=== PATIENT | female | born 1965 | race Caucasian/White ===

== ENCOUNTER 2017-06-01 08:15 | Emergency (ER) | payer SELFPAY ==
[2017-06-01 08:28] VITALS: BP 147/95; BMI 35.4
--- NOTE | 2017-06-01 08:36 | DR.GENAD ---
HPI - PCP Primary Care Physician: gar - Complaint/Symptoms Chief Complaint:: COUGH, CONGESTION, AND DIFF BREATHING SINCE MIDDLE OF LAST MONTH. Self Treatment fo Chief Complaint: OTC MEDS - Nurses notes reviewed Nurses Notes Review: Yes - Source History Provided: Patient - Mode of Arrival Mode of Arrival: Ambulatory - Timing Onset of Chief Complaint: 05/17/17 Came on: Gradually - Duration Duration: Intermittent How lon Duration: Days - Location Location: chest - Severity Severity: Mild - Modifying Factors Worsens:: unknown - Associated Signs and Symptoms Associated Signs and Symptoms: productive cough PMH - PMH Past Medical History: No Past Surgical History: Yes Surgical History: Hysterectomy, Joint Replacement - Family History History of Family Medical Conditions: Yes Family Medical History: Hypertension - Social History Alcohol Use: None Do you use any recreational Drugs:: No Lives With: Family Lives Where: Home - infectious screening In the last 2 months have you had wt loss of >10#?: NO Have you had fever, night sweats or hemotysis?: No Have you traveled outside the country in the last 6 months?: No Isolation: Standard ROS - Review of Systems Constitutional: No Symptoms Reported Eyes: No Symptoms Reported ENTM: No Symptoms Reported Respiratoy: Productive Cough, Short of Breath, Wheezing Cardiovascular: No Symptoms Reported Gastrointestinal/Abdominal: No Symptoms Reported Genitourinary: No Symptoms Reported Neurological: No Symptoms Reported Musculoskeletal: No Symptoms Reported Integumentary: No Symptoms Reported Hematologic/Lymphatic: No Symptoms Reported Endocrine: No Symptoms Reported Psychiatric: No Symptoms Reported All Other Systems: Reviewed and Negative PE - Vital Signs Vitals: Temperature 97.9 F Pulse Rate 81 Respiratory Rate 16 Blood Pressure 147/95 O2 Sat by Pulse Oximetry 96 - General Limitations: No Limitations General Appearance: Alert, In No Apparent Distress - Head Head Exam: Normal Inspection, Atraumatic - Eyes Eye exam: Normal Appearance, EOMI. negative: Scleral Icterus, Conjunctival Injection - ENT ENT Exam: Normal Exam, Normal Oropharynx External Ear Exam: Normal External Inspection Mouth Exam: Normal Inspection. negative: Drooling Throat Exam: Normal Inspection. negative: Tonsillar Erythema - Neck Neck Exam: Normal Inspection, Full ROM, Trachea Midline - Chest Chest Inspection: Normal Inspection - Respiratory Respiratory Exam: negative: Normal Lung Sounds Bilat, Accessory Muscle Use, Respiratory Distress Respiratory Exam: Bilateral Wheezing (slight) - Cardiovascular Cardiovascular Exam: Regular Rate - Abdominal Exam Abdominal Exam: Normal Inspection, Normal Bowel Sounds, Soft. negative: Distention - Extremities Extremities Exam: Normal Inspection, Full ROM, Tenderness - Back Back Exam: Normal Inspection, Full ROM, Tenderness - Neurologic Neurological Exam: Alert, Oriented X3, CN II-XII Intact - Psychiatric Psychiatric Exam: Normal Affect, Normal Mood - Skin Skin Exam: Intact, Normal Color - Diagnosis Discharge Problem: Bronchitis - Discharge Plan Condition: Stable Prescriptions: Azithromycin [Zithromax] 1 dose PO DAILY #6 tab Prednisone [Prednisone Tab 20 mg] 20 mg PO QAM #7 tab - Follow ups/Referrals Follow ups/Referrals: BHARGAV GAR [Primary Care Provider] - 3 days - Instructions
[2017-06-01] MEDS ORDERED: XOPENEX 1.25 MG/3 ML NEBULE NEB ONE ×2 (08:46→08:51)
== END 2017-06-01 09:21 | disposition home or self-care (01) ==
LOC: ER 08:35
DX: J40 Bronchitis, not specified as acute or chronic (principal)
CPT/HCPCS: 94640; 99282

== ENCOUNTER 2017-07-14 08:45 | Emergency (ER) | payer SELFPAY ==
[2017-07-14 08:50] VITALS: BP 117/84; BMI 35.4
--- NOTE | 2017-07-14 09:14 | DR.GENAD ---
HPI - PCP Primary Care Physician: gar - Complaint/Symptoms Chief Complaint Doctors Comments: Patient admits to a four day history of diarrah and vomiting. She denies fever. The emesis in non projectile and non bilious. Chief Complaint:: patient stated she has been vomiting and diarhea for 4 days. - Source History Provided: Patient - Mode of Arrival Mode of Arrival: Ambulatory - Timing Onset of Chief Complaint: 07/10/17 PMH - PMH Past Medical History: No Past Surgical History: Yes Surgical History: Hysterectomy, Joint Replacement - Family History History of Family Medical Conditions: Yes Family Medical History: Hypertension - Social History Does patient currently use any type of tobacco product: No Have you used tobacco products in the last 12 months: No Type of Tobacco Use: None Does any household member use tobacco: Yes Alcohol Use: None Do you use any recreational Drugs:: No Lives With: Family Lives Where: Home - infectious screening In the last 2 months have you had wt loss of >10#?: NO Have you had fever, night sweats or hemotysis?: No Have you traveled outside the country in the last 6 months?: No Isolation: Standard ROS - Review of Systems Eyes: No Symptoms Reported ENTM: No Symptoms Reported Respiratoy: No Symptoms Reported Cardiovascular: No Symptoms Reported Gastrointestinal/Abdominal: No Symptoms Reported Genitourinary: No Symptoms Reported Neurological: No Symptoms Reported Musculoskeletal: No Symptoms Reported Integumentary: No Symptoms Reported Hematologic/Lymphatic: No Symptoms Reported Endocrine: No Symptoms Reported Psychiatric: No Symptoms Reported All Other Systems: Reviewed and Negative PE - Vital Signs Vitals: Temperature 97.7 F Pulse Rate 80 Respiratory Rate 16 Blood Pressure 117/84 O2 Sat by Pulse Oximetry 98 - General Limitations: No Limitations General Appearance: Alert, In No Apparent Distress - Head Head Exam: Normal Inspection, Atraumatic - Eyes Eye exam: Normal Appearance, PERRL, EOMI - ENT ENT Exam: Normal Exam, Normal Oropharynx, Normal External Ear Exam External Ear Exam: Normal External Inspection TM/Canal Exam: Bilateral Normal Nose Exam: Normal Nose Exam Mouth Exam: Normal Inspection Throat Exam: Normal Inspection. negative: Tonsillar Exudate, R Peritonsillar Mass - Neck Neck Exam: Normal Inspection, Full ROM. negative: Tenderness - Chest Chest Inspection: Normal Inspection - Respiratory Respiratory Exam: Normal Lung Sounds Bilat Respiratory Exam: Lower Clear to Auscultation - Cardiovascular Cardiovascular Exam: Regular Rate - Abdominal Exam Abdominal Exam: Normal Inspection, Hyperactive Bowel Sounds Abdominal Tenderness: Epigastrium - Extremities Extremities Exam: Normal Inspection, Full ROM - Back Back Exam: Normal Inspection, Full ROM - Neurologic Neurological Exam: Alert, Oriented X3, CN II-XII Intact - Psychiatric Psychiatric Exam: Normal Affect, Normal Mood - Skin Skin Exam: Warm, Dry Course - Reevaluation 1st: Improved ROR - Labs Reviewed Laboratory Results Reviewed?: Yes (H pylori positive) Result Diagrams: 07/14/17 09:28 07/14/17 09: Laboratory: WBC 4.9 X10^3/uL (3.6-10.0) 07/14/17 09: RBC 5.14 X10^6/uL (3.5-5.4) 07/14/17 09: Hgb 16.0 g/dL (12.0-16.0) 07/14/17 09: Hct 45.9 % (36.0-47.0) 07/14/17: MCV 89.2 fL (80.0-100.0) 07/14/17 09: MCH 31.1 pg (27.0-34.0) 07/14/17 09: MCHC 34.9 g/dL (33.0-35.0) 07/14/17: RDW 14.4 % (11.6-16.5) 07/14/17 09: Plt Count 262 X10^3/uL (150.0-450.0) 07/14/17: MPV 7.7 fL (7.4-11.0) 07/14/17: Neut % 64.3 % (42.0-75.0) 07/14/17 09: Lymph % 23.3 % (21.0-51.0) 07/14/17: [place] % 10.6 % (0.0-13.0) 07/14/17: Eos % 1.3 % (0.9-2.9) 07/14/17 09: Baso % 0.5 % (0.2-1.0) 07/14/17: Neut # 3.2 x10^3/uL (2.2-4.8) 07/14/17 09:28 Lymph # 1.1 X10^3/uL (1.3-2.9) L 07/14/17 09:28 [place] # 0.5 x10^3/uL (0.3-0.8) 07/14/17 09:28 Eos # 0.1 x10^3/uL (0.0-0.2) 07/14/17 09:28 Baso # 0.0 X10^3/uL (0.0-0.1) 07/14/17 09:28 Absolute Nucleated RBC 0.1 /100WBC 07/14/17 09:28 Sodium 139 mmol/L (136-145) 07/14/17 09:28 Corrected Sodium TNP 07/14/17 09:28 Potassium 4.0 mmol/L (3.5-5.1) 07/14/17 09:28 Chloride 104 mmol/L (98-107) 07/14/17 09:28 Carbon Dioxide 27.5 mmol/L (21-32) 07/14/17 09:28 BUN 16 mg/dL (7-18) 07/14/17 09:28 Creatinine 0.84 mg/dL (0.55-1.02) 07/14/17 09:28 Est GFR (MDRD) Af Amer > 60 (>60) 07/14/17 09:28 Est GFR (MDRD) Non-Af > 60 (>60) 07/14/17 09:28 Glucose 92 mg/dL (65-99) 07/14/17 09:28 Calcium 9.2 mg/dL (8.5-10.1) 07/14/17 09:28 Corrected Calcium TNP 07/14/17 09:28 Total Bilirubin 0.40 mg/dL (0.2-1.0) 07/14/17 09:28 AST 21 Units/L (15-37) 07/14/17 09:28 ALT 33 Units/L (12-78) 07/14/17 09:28 Alkaline Phosphatase 98 Units/L (46-116) 07/14/17 09:28 Total Protein 7.8 g/dL (6.4-8.2) 07/14/17 09:28 Albumin 3.5 g/dL (3.4-5.0) 07/14/17 09:28 Globulin 4.3 g/dL (2.5-4.5) 07/14/17 09:28 Albumin/Globulin Ratio 0.8 Ratio (1.1-2.1) L 07/14/17 09:28 H. pylori IgG Antibody Positive (NEGATIVE) A 07/14/17 09:28 Streptococcus Screen Negative (NEGATIVE) 07/14/17 09:35 - Diagnosis Discharge Problem: Gastroenteritis, Helicobacter pylori gastritis - Discharge Plan Condition: Stable - Follow ups/Referrals Follow ups/Referrals: BHARGAV GAR [Primary Care Provider] - 3 days - Instructions
[2017-07-14] MEDS ORDERED: LR 1000 ML IV 1,000 ML IV ONE ×2 (09:16→09:18)
[2017-07-14] MEDS ORDERED: ZOFRAN INJ 4 MG VIAL IVP ONE (09:17)
[2017-07-14] MEDS ORDERED: ZOFRAN INJ 4 MG VIAL ONE (09:19)
[2017-07-14 09:40] LABS: BASOPHILS % (AUTO) 0.5 % (0.2-1.0); EOSINOPHILS # (AUTO) 0.1 x10^3/uL (0.0-0.2); EOSINOPHILS % (AUTO) 1.3 % (0.9-2.9); HEMATOCRIT 45.9 % (36.0-47.0); LYMPHOCYTES # (AUTO) 1.1 X10^3/uL (1.3-2.9); LYMPHOCYTES % (AUTO) 23.3 % (21.0-51.0); MEAN CORPUSCULAR HEMOGLOBIN 31.1 pg (27.0-34.0); MEAN CORPUSCULAR HGB CONC 34.9 g/dL (33.0-35.0); MEAN CORPUSCULAR VOLUME 89.2 fL (80.0-100.0); MEAN PLATELET VOLUME 7.7 fL (7.4-11.0); MONOCYTES # (AUTO) 0.5 x10^3/uL (0.3-0.8); MONOCYTES % (AUTO) 10.6 % (0.0-13.0); NEUTROPHILS # (AUTO) 3.2 x10^3/uL (2.2-4.8); NEUTROPHILS % (AUTO) 64.3 % (42.0-75.0); PLATELET COUNT 262 X10^3/uL (150.0-450.0); RED BLOOD COUNT 5.14 X10^6/uL (3.5-5.4); RED CELL DISTRIBUTION WIDTH 14.4 % (11.6-16.5); WHITE BLOOD COUNT 4.9 X10^3/uL (3.6-10.0)
[2017-07-14 09:51] LABS: ALANINE AMINOTRANSFERASE 33 Units/L (12-78); ALBUMIN 3.5 g/dL (3.4-5.0); ALKALINE PHOSPHATASE 98 Units/L (46-116); ASPARTATE AMINO TRANSFERASE 21 Units/L (15-37); BLOOD UREA NITROGEN 16 mg/dL (7-18); CALCIUM 9.2 mg/dL (8.5-10.1); CARBON DIOXIDE 27.5 mmol/L (21-32); CHLORIDE 104 mmol/L (98-107); CREATININE 0.84 mg/dL (0.55-1.02); SODIUM 139 mmol/L (136-145); TOTAL PROTEIN 7.8 g/dL (6.4-8.2); eGFR BLACK RACES > 60 (>60); eGFR NON BLACK RACES > 60 (>60)
[2017-07-14] MEDS ORDERED: NITROSTAT SL ONE (10:23)
[2017-07-15] MEDS ORDERED: ASPIRIN 81 MG CHEWTAB PO ONE (10:22)
== END 2017-07-14 10:33 | disposition home or self-care (01) ==
LOC: ER 08:54
DX: K52.89 Other specified noninfective gastroenteritis and colitis (principal); B96.81 Helicobacter pylori [H. pylori] as the cause of diseases classified elsewhere
CPT/HCPCS: 36415; 80053; 85025; 86677; 87070; 87880; 96365; 96374; 99283; A4222; J2405; J7120

== ENCOUNTER 2017-07-18 17:07 | Emergency (ER) | payer SELFPAY ==
[2017-07-18 17:15] VITALS: BP 150/93; BMI 37.2
--- NOTE | 2017-07-18 17:54 | DR.GENAD ---
HPI - PCP Primary Care Physician: Gar - Complaint/Symptoms Chief Complaint Doctors Comments: Patient was diagnosed with H pylori gastritis and UTI on last week. She presents today with complaint the she continues to have diarrhea and vomiting. Chief Complaint:: "For over a week now I have been feeling really weak and sick. I have been throwing up and have had loose stools. I came to the ER Wed and was diagnosed with gastroenteritis. I have not gotten any better though." - Source History Provided: Patient - Mode of Arrival Mode of Arrival: Ambulatory - Timing Onset of Chief Complaint: 07/11/17 PMH - PMH Past Medical History: No Past Surgical History: Yes Surgical History: Cholecystectomy, Hysterectomy, Joint Replacement - Family History History of Family Medical Conditions: Yes Family Medical History: Diabetes Mellitus, Hypertension - Social History Does patient currently use any type of tobacco product: No Have you used tobacco products in the last 12 months: No Type of Tobacco Use: None Does any household member use tobacco: No Alcohol Use: None Do you use any recreational Drugs:: No Lives With: Spouse Lives Where: Home - infectious screening In the last 2 months have you had wt loss of >10#?: NO Have you had fever, night sweats or hemotysis?: No Have you traveled outside the country in the last 6 months?: No Isolation: Standard ROS - Review of Systems Eyes: No Symptoms Reported ENTM: No Symptoms Reported Respiratoy: No Symptoms Reported Cardiovascular: No Symptoms Reported Gastrointestinal/Abdominal: Diarrhea Genitourinary: No Symptoms Reported Neurological: No Symptoms Reported Musculoskeletal: No Symptoms Reported Integumentary: No Symptoms Reported Hematologic/Lymphatic: No Symptoms Reported Endocrine: No Symptoms Reported Psychiatric: No Symptoms Reported All Other Systems: Reviewed and Negative PE - Vital Signs Vitals: Temperature 97.9 F Pulse Rate 92 Respiratory Rate 18 Blood Pressure 150/93 O2 Sat by Pulse Oximetry 95 - General Limitations: No Limitations General Appearance: Alert, In No Apparent Distress - Head Head Exam: Normal Inspection, Atraumatic - Eyes Eye exam: Normal Appearance, PERRL, EOMI - ENT ENT Exam: Normal Exam External Ear Exam: Normal External Inspection TM/Canal Exam: Bilateral Normal Nose Exam: Normal Nose Exam Mouth Exam: Normal Inspection Throat Exam: Normal Inspection - Neck Neck Exam: Normal Inspection - Chest Chest Inspection: Normal Inspection - Respiratory Respiratory Exam: Normal Lung Sounds Bilat Respiratory Exam: Bilateral Clear to Auscultation - Cardiovascular Cardiovascular Exam: Regular Rate, Normal Rhythm - Abdominal Exam Abdominal Exam: Normal Inspection. negative: Tenderness, Guarding, Rebound, Rigidity Abdominal Tenderness: Epigastrium - Extremities Extremities Exam: Normal Inspection, Full ROM - Back Back Exam: Normal Inspection, Full ROM - Neurologic Neurological Exam: Alert, Oriented X3, CN II-XII Intact - Psychiatric Psychiatric Exam: Normal Affect, Normal Mood - Skin Skin Exam: Warm, Dry, Intact Course - Treatment Treatment: Reviewed last weeks labs with todays, reviewed urine c/s: E.Coli sensitive to all. Repeat urine shows improvin+bld vs 4+bld,nitrite neg vs nitrite +;leuk + vs leuk +, wbc 10-20 vs -08., chemistries normal ROR - Labs Reviewed Result Diagrams: 07/18/17 18:00 Laboratory: Sodium 141 mmol/L (136-145) 07/18/17 18:00 Corrected Sodium TNP 07/18/17 18:00 Potassium 3.6 mmol/L (3.5-5.1) 07/18/17 18:00 Chloride 107 mmol/L (98-107) 07/18/17 18:00 Carbon Dioxide 25.8 mmol/L (21-32) 07/18/17 18:00 BUN 11 mg/dL (7-18) 07/18/17 18:00 Creatinine 0.92 mg/dL (0.55-1.02) 07/18/17 18:00 Est GFR (MDRD) Af Amer > 60 (>60) 07/18/17 18:00 Est GFR (MDRD) Non-Af > 60 (>60) 07/18/17 18:00 Glucose 92 mg/dL (65-99) 07/18/17 18:00 Calcium 9.2 mg/dL (8.5-10.1) 07/18/17 18:00 Specimen Type Clean catch urine 07/18/17 18:03 Urine Color Yellow (YELLOW) 07/18/17 18:03 Urine Appearance Hazy (CLEAR) 07/18/17 18:03 Urine pH 6.0 (5.0 - 8.0) 07/18/17 18:03 Ur Specific [place] 1.025 (1.000-1.030) 07/18/17 18:03 Urine Protein 2+ (NEGATIVE) 07/18/17 18:03 Urine Glucose (UA) Negative (NEGATIVE) 07/18/17 18:03 Urine Ketones Negative (NEGATIVE) 07/18/17 18:03 Urine Occult Blood 2+ (NEGATIVE) 07/18/17 18:03 Urine Nitrite Negative (NEGATIVE) 07/18/17 18:03 Urine Bilirubin Negative (NEGATIVE) 07/18/17 18:03 Urine Urobilinogen Normal (NORMAL) 07/18/17 18:03 Ur Leukocyte Esterase 1+ (NEGATIVE) 07/18/17 18:03 Urine RBC Rare /HPF (NEGATIVE) 07/18/17 18:03 Urine WBC 04 - 08 /HPF (NEGATIVE) 07/18/17 18:03 Ur Squamous Epith Cells Many /HPF (NEGATIVE) 07/18/17 18:03 Amorphous Sediment 3+ /HPF (NEGATIVE) 07/18/17 18:03 Urine Bacteria Trace /HPF (NEGATIVE) 07/18/17 18:03 Hyaline Casts Rare /LPF (NEGATIVE) 07/18/17 18:03 Ur Culture Indicated? No/not indicated 07/18/17 18:03 - Diagnosis Discharge Problem: H. pylori duodenitis Diarrhea Qualifiers: Diarrhea type: unspecified type Qualified Code(s): R19.7 - Diarrhea, unspecified - Discharge Plan Condition: Stable - Follow ups/Referrals Follow ups/Referrals: BHARGAV GAR [Primary Care Provider] - 3 days - Instructions
[2017-07-18 18:19] LABS: BILIRUBIN,URINE NEGATIVE (NEGATIVE); BLOOD/HEMOGLOBIN,URINE 2+ (NEGATIVE); GLUCOSE, URINE NEGATIVE (NEGATIVE); KETONES,URINE NEGATIVE (NEGATIVE); LEUKOCYTE ESTERASE ,URINE 1+ (NEGATIVE); NITRITES,URINE NEGATIVE (NEGATIVE); PROTEIN,URINE 2+ (NEGATIVE); UROBILINOGEN,URINE NORMAL (NORMAL)
[2017-07-18 18:23] LABS: APPEARANCE,URINE HAZY (CLEAR); COLOR,URINE YELLOW (YELLOW)
[2017-07-18 18:23] LABS: BLOOD UREA NITROGEN 11 mg/dL (7-18); CALCIUM 9.2 mg/dL (8.5-10.1); CARBON DIOXIDE 25.8 mmol/L (21-32); CHLORIDE 107 mmol/L (98-107); CREATININE 0.92 mg/dL (0.55-1.02); SODIUM 141 mmol/L (136-145); eGFR BLACK RACES > 60 (>60); eGFR NON BLACK RACES > 60 (>60)
[2017-07-18 18:41] LABS: RBC,URINE RARE /HPF (NEGATIVE)
[2017-07-18 18:42] LABS: AMORPHOUS SEDIMENT,UR 3+ /HPF (NEGATIVE); BACTERIA,URINE TRACE /HPF (NEGATIVE); HYALINE CASTS, URINE RARE /LPF (NEGATIVE); SQUAMOUS EPITHELIAL CELL,UR MANY /HPF (NEGATIVE)
== END 2017-07-18 19:34 | disposition home or self-care (01) ==
LOC: ER 17:24
DX: K29.70 Gastritis, unspecified, without bleeding (principal); R19.7 Diarrhea, unspecified
CPT/HCPCS: 36415; 80048; 81001; 99282

== ENCOUNTER 2017-08-07 15:08 | Emergency (ER) | payer SELFPAY ==
[2017-08-07 15:26] VITALS: BP 138/84; BMI 37.2
[2017-08-07] MEDS ORDERED: TORADOL 60 MG VIAL IM ONE (16:17)
[2017-08-07] MEDS ORDERED: PHENERGAN INJ 25 MG IM ONE (16:17)
--- NOTE | 2017-08-07 16:21 | ED.ABDFE ---
HPI - Time seen Time seen: 16:15 - PCP Primary Care Physician: RIN LOPEZ - Complaint Chief Complaint Doctors Comments: Patient complains of abdominal pain for the past month with pain getting worst. Patient is complaining of Right lower abdominal pain that radiates to her back with problems urinating. she denies hematuria, kidney stones and states her gallbladder has been removed. She has been having problems with nausea but denies diarrhea. she denies chest pain or SOB. patient denies alcohol or tobacco usage. She denies any recent trauma. She is a patient of Dr. Gar. Chief Complaint:: PT C/O ABD PAIN FOR THE PAST MONTH AND DOCTOR RIN HAS BEEN TRYING TO GIVE HER MEDS AND SHE IS GETTING WORSE.. - Nurses notes reviewed Nurses Notes Review: Yes - Source History Provided: Patient - Mode of arrival Mode of Arrival: Ambulatory - Timing Onset of Chief Complaint: 08/07/17 Came on: Gradually - Duration Duration: Intermittent How lon Duration: Weeks - Location Location: RUQ, Epigastric, Suprapubic - Severity Severity: Moderate - Quality Quality: Aching, Cramping - Context Onset: Gradually History of: Abdominal surgery - Modifying Worsening Factors: Movement Improving Factors: Nothing - Associated signs and symptoms Associated Signs and Symptoms: Nausea, Dysuria, Urgency PMH - PMH Past Medical History: No Past Surgical History: Yes Surgical History: Cholecystectomy, Hysterectomy, Joint Replacement Past Surgical History Comment: HYS, GALLBLADDER, KNEE REPLACEMENT. - Family History History of Family Medical Conditions: Yes Family Medical History: Diabetes Mellitus, Hypertension - Social History Does patient currently use any type of tobacco product: No Have you used tobacco products in the last 12 months: No Type of Tobacco Use: None Does any household member use tobacco: No Alcohol Use: None Do you use any recreational Drugs:: No Lives With: Spouse Lives Where: Home - infectious screening In the last 2 months have you had wt loss of >10#?: NO Have you had fever, night sweats or hemotysis?: No Have you traveled outside the country in the last 6 months?: No Isolation: Standard ROS - Review of Systems Constitutional: No Symptoms Reported (abdominal pain) Eyes: No Symptoms Reported ENTM: No Symptoms Reported Respiratoy: No Symptoms Reported. negative: See HPI, Productive Cough, Non- Productive Cough, Moist Cough, Dry Cough, Hacking Cough, Barking Cough, Brassy Cough, Orthopnea, Short of Breath, Stridor, Wheezing, Hemoptysis, Other Cardiovascular: No Symptoms Reported Gastrointestinal/Abdominal: No Symptoms Reported, Abdominal Pain, Nausea Genitourinary: No Symptoms Reported, Dysuria. negative: See HPI, Discharge, Frequency, Hematuria, Pain, Bleeding, Other Neurological: No Symptoms Reported Musculoskeletal: No Symptoms Reported, Back Integumentary: No Symptoms Reported Hematologic/Lymphatic: No Symptoms Reported Endocrine: No Symptoms Reported. negative: See HPI, Excessive Sweating, Flushing, Intolerance to Cold, Intolerance to Heat, Increased Hunger, Increased Thirst, Increased Urine, Unexplained Weight Gain, Unexplained Weight Loss, Failure to Thrive, Decreased Appetite, Other Psychiatric: No Symptoms Reported PE - Vital Signs Vitals: Temperature 97.4 F Pulse Rate 92 Respiratory Rate 18 Blood Pressure 138/84 O2 Sat by Pulse Oximetry 97 - General Limitations: No Limitations General Appearance: Alert, In Distress (moderate) - Head Head Exam: Normal Inspection, Atraumatic, Normocephalic - Eyes Eye exam: Normal Appearance, PERRL, EOMI. negative: Scleral Icterus, Conjunctival Injection, Nystagmus, Miosis, Mydrasis, Periorbital Swelling, Periorbital Tenderness, Other - ENT ENT Exam: Normal Exam, Normal Oropharynx, Normal External Ear Exam, Mucous Membranes Moist, TM's Normal Bilaterally - Neck Neck Exam: Normal Inspection, Full ROM, Trachea Midline. negative: Tenderness, Meningismus, Lymphadenopathy, Thyromegaly, Other - Chest Chest Inspection: Normal Inspection, Symmetric Chest Wall Rise - Respiratory Respiratory Exam: Normal Lung Sounds Bilat Respiratory Exam: Bilateral Clear to Auscultation - Cardiovascular Cardiovascular Exam: Regular Rate, Normal Rhythm, Normal Heart Sounds - Abdominal Exam Abdominal Exam: Normal Inspection, Normal Bowel Sounds, Soft, Tenderness ( epigastric; LUQ and RUQ tenderness with suprapubic tenderness), Guarding, Dimnished Bowel Sounds Abdominal Tenderness: RUQ, LUQ, Epigastrium, Suprapubic, Moderate - Rectal Rectal Exam: Deferred - Back Back Exam: Normal Inspection, Full ROM, (R) CVA Tenderness. negative: (R) Sciatic Notch Tenderness, (L) Sciatic Notch Tendern - Extremeties Extremities Exam: Normal Inspection, Full ROM, Normal Capillary Refill - External Exam: Female: Deferred : Speculum Exam (Female): Deferred : Bimanual Exam (female): Deferred - Neurologic Neurological Exam: Alert, Oriented X3, CN II-XII Intact, Normal Gait, Reflexes Normal - Psychiatric Psychiatric Exam: Normal Affect, Normal Mood - Skin Skin Exam: Warm, Dry, Intact, Normal Color ROR - Labs Reviewed Laboratory Results Reviewed?: Yes (all labs and x-ray results reviewed and discussed with patient) Result Diagrams: 08/07/17 16:35 08/07/17 16:35 Laboratory: WBC 8.8 X10^3/uL (3.6-10.0) 08/07/17 16:35 RBC 4.92 X10^6/uL (3.5-5.4) 08/07/17 16:35 Hgb 15.1 g/dL (12.0-16.0) 08/07/17 16:35 Hct 44.3 % (36.0-47.0) 08/07/17 16:35 MCV 90.0 fL (80.0-100.0) 08/07/17 16:35 MCH 30.7 pg (27.0-34.0) 08/07/17 16:35 MCHC 34.1 g/dL (33.0-35.0) 08/07/17 16:35 RDW 14.1 % (11.6-16.5) 08/07/17 16:35 Plt Count 266 X10^3/uL (150.0-450.0) 08/07/17 16:35 MPV 7.8 fL (7.4-11.0) 08/07/17 16:35 Neut % 70.2 % (42.0-75.0) 08/07/17 16:35 Lymph % 19.6 % (21.0-51.0) L 08/07/17 16:35 [place] % 8.6 % (0.0-13.0) 08/07/17 16:35 Eos % 1.0 % (0.9-2.9) 08/07/17 16:35 Baso % 0.6 % (0.2-1.0) 08/07/17 16:35 Neut # 6.2 x10^3/uL (2.2-4.8) H 08/07/17 16:35 Lymph # 1.7 X10^3/uL (1.3-2.9) 08/07/17 16:35 [place] # 0.8 x10^3/uL (0.3-0.8) 08/07/17 16:35 Eos # 0.1 x10^3/uL (0.0-0.2) 08/07/17 16:35 Baso # 0.1 X10^3/uL (0.0-0.1) 08/07/17 16:35 Absolute Nucleated RBC 0.0 /100WBC 08/07/17 16:35 Sodium 140 mmol/L (136-145) 08/07/17 16:35 Corrected Sodium TNP 08/07/17 16:35 Potassium 3.8 mmol/L (3.5-5.1) 08/07/17 16:35 Chloride 104 mmol/L (98-107) 08/07/17 16:35 Carbon Dioxide 29.8 mmol/L (21-32) 08/07/17 16:35 BUN 13 mg/dL (7-18) 08/07/17 16:35 Creatinine 0.99 mg/dL (0.55-1.02) 08/07/17 16:35 Est GFR (MDRD) Af Amer > 60 (>60) 08/07/17 16:35 Est GFR (MDRD) Non-Af > 60 (>60) 08/07/17 16:35 Glucose 82 mg/dL (65-99) 08/07/17 16:35 Calcium 9.2 mg/dL (8.5-10.1) 08/07/17 16:35 Corrected Calcium TNP 08/07/17 16:35 Total Bilirubin 0.40 mg/dL (0.2-1.0) 08/07/17 16:35 AST 13 Units/L (15-37) L 08/07/17 16:35 ALT 43 Units/L (12-78) 08/07/17 16:35 Alkaline Phosphatase 127 Units/L (46-116) H 08/07/17 16:35 Total Protein 7.6 g/dL (6.4-8.2) 08/07/17 16:35 Albumin 3.5 g/dL (3.4-5.0) 08/07/17 16:35 Globulin 4.1 g/dL (2.5-4.5) 08/07/17 16:35 Albumin/Globulin Ratio 0.9 Ratio (1.1-2.1) L 08/07/17 16:35 Amylase 40 Units/L (25-115) 08/07/17 16:35 Lipase 122 Units/L (73-393) 08/07/17 16:35 HCG, Qual Negative <10 mIU/mL 08/07/17 16:15 Specimen Type Clean catch urine 08/07/17 16:33 Urine Color Yellow (YELLOW) 08/07/17 16:33 Urine Appearance Hazy (CLEAR) 08/07/17 16:33 Urine pH 5.0 (5.0 - 8.0) 08/07/17 16:33 Ur Specific [place] 1.025 (1.000-1.030) 08/07/17 16:33 Urine Protein 1+ (NEGATIVE) 08/07/17 16:33 Urine Glucose (UA) Negative (NEGATIVE) 08/07/17 16:33 Urine Ketones Negative (NEGATIVE) 08/07/17 16:33 Urine Occult Blood 1+ (NEGATIVE) 08/07/17 16:33 Urine Nitrite Negative (NEGATIVE) 08/07/17 16:33 Urine Bilirubin Negative (NEGATIVE) 08/07/17 16:33 Urine Urobilinogen Normal (NORMAL) 08/07/17 16:33 Ur Leukocyte Esterase 1+ (NEGATIVE) 08/07/17 16:33 Urine RBC 0-2 /HPF (NEGATIVE) 08/07/17 16:33 Urine WBC 5-7 /HPF (NEGATIVE) 08/07/17 16:33 Ur Squamous Epith Cells Few /HPF (NEGATIVE) 08/07/17 16:33 Urine Bacteria Trace /HPF (NEGATIVE) 08/07/17 16:33 Ur Culture Indicated? No/not indicated 08/07/17 16:33 H. pylori IgG Antibody Positive (NEGATIVE) A 08/07/17 16:15 - XRAY XRAY Interpreted by: Radiologist (CT abdomen: Ct finding of acute sigmoid and rectosigmoid colonic diverticulitis) - Diagnosis Discharge Problem: Diverticulitis of colon, Helicobacter positive gastritis - Discharge Plan Disposition: 01 HOME, SELF-CARE Condition: Stable Prescriptions: Levofloxacin [LEVAQUIN TAB 500 MG *] 500 mg PO Q24H #14 tab Metronidazole [Flagyl Tab 500 mg] 500 mg PO QID PRN #40 tab PRN Reason: - Follow ups/Referrals Follow ups/Referrals: BHARGAV GAR [Primary Care Provider] - 3 days - Instructions Instructions: Diverticulitis, [id number], Helicobacter Pylori Antibodies Test , Abdominal Pain, Adult, [id number]
[2017-08-07] MEDS ORDERED: TORADOL 60 MG VIAL ONE (16:22)
[2017-08-07] MEDS ORDERED: PHENERGAN INJ 25 MG ONE (16:22)
[2017-08-07 16:46] LABS: BILIRUBIN,URINE NEGATIVE (NEGATIVE); BLOOD/HEMOGLOBIN,URINE 1+ (NEGATIVE); GLUCOSE, URINE NEGATIVE (NEGATIVE); KETONES,URINE NEGATIVE (NEGATIVE); LEUKOCYTE ESTERASE ,URINE 1+ (NEGATIVE); NITRITES,URINE NEGATIVE (NEGATIVE); PROTEIN,URINE 1+ (NEGATIVE); UROBILINOGEN,URINE NORMAL (NORMAL)
[2017-08-07 16:46] LABS: BASOPHILS # (AUTO) 0.1 X10^3/uL (0.0-0.1); BASOPHILS % (AUTO) 0.6 % (0.2-1.0); EOSINOPHILS # (AUTO) 0.1 x10^3/uL (0.0-0.2); HEMATOCRIT 44.3 % (36.0-47.0); HEMOGLOBIN 15.1 g/dL (12.0-16.0); LYMPHOCYTES # (AUTO) 1.7 X10^3/uL (1.3-2.9); LYMPHOCYTES % (AUTO) 19.6 % (21.0-51.0); MEAN CORPUSCULAR HEMOGLOBIN 30.7 pg (27.0-34.0); MEAN CORPUSCULAR HGB CONC 34.1 g/dL (33.0-35.0); MEAN PLATELET VOLUME 7.8 fL (7.4-11.0); MONOCYTES # (AUTO) 0.8 x10^3/uL (0.3-0.8); MONOCYTES % (AUTO) 8.6 % (0.0-13.0); NEUTROPHILS # (AUTO) 6.2 x10^3/uL (2.2-4.8); NEUTROPHILS % (AUTO) 70.2 % (42.0-75.0); PLATELET COUNT 266 X10^3/uL (150.0-450.0); RED BLOOD COUNT 4.92 X10^6/uL (3.5-5.4); RED CELL DISTRIBUTION WIDTH 14.1 % (11.6-16.5); WHITE BLOOD COUNT 8.8 X10^3/uL (3.6-10.0)
[2017-08-07 16:53] LABS: APPEARANCE,URINE HAZY (CLEAR); BACTERIA,URINE TRACE /HPF (NEGATIVE); COLOR,URINE YELLOW (YELLOW); RBC,URINE 0-2 /HPF (NEGATIVE); SQUAMOUS EPITHELIAL CELL,UR FEW /HPF (NEGATIVE)
[2017-08-07 16:57] LABS: ALANINE AMINOTRANSFERASE 43 Units/L (12-78); ALBUMIN 3.5 g/dL (3.4-5.0); ALKALINE PHOSPHATASE 127 Units/L (46-116); AMYLASE 40 Units/L (25-115); ASPARTATE AMINO TRANSFERASE 13 Units/L (15-37); BLOOD UREA NITROGEN 13 mg/dL (7-18); CALCIUM 9.2 mg/dL (8.5-10.1); CARBON DIOXIDE 29.8 mmol/L (21-32); CHLORIDE 104 mmol/L (98-107); CREATININE 0.99 mg/dL (0.55-1.02); LIPASE 122 Units/L (73-393); SODIUM 140 mmol/L (136-145); TOTAL PROTEIN 7.6 g/dL (6.4-8.2); eGFR BLACK RACES > 60 (>60); eGFR NON BLACK RACES > 60 (>60)
[2017-08-07 17:24] LABS: SERUM PREGNANCY TEST, QUAL NEGATIVE <10 mIU/mL
[2017-08-07] MEDS ORDERED: FLAGYL TAB 500 MG PO STA (18:22)
[2017-08-07] MEDS ORDERED: LEVAQUIN TAB 500 MG ONE (18:25)
[2017-08-07] MEDS ORDERED: FLAGYL TAB 250 MG PO ONE (18:25)
--- NOTE | 2017-08-07 18:27 | CT ---
History: Abdominal pain. Exam: Noncontrast CT examination of the abdomen and pelvis is performed without the benefit of IV or oral contrast. Reformatted CT images in the coronal and sagittal planes were performed. Comparison: None available. Findings: Lingular scarring versus atelectasis is observed. The lung bases are otherwise clear. The h eart is normal in size without pericardial effusion noncontrast CT images of the liver, pancreas, sto mach, adrenal glands, and kidneys are unremarkable. There is a large quantity of colonic stool. There is evidence for acute sigmoid and rectosigmoid colonic diverticulitis without evidence for pericolon ic abscess, bowel obstruction, or other complicating feature. No free air is seen. There is abnormal thickening seen throughout the rectosigmoid colon. At some point, follow-up with CT imaging of the ab domen pelvis with IV and oral contrast suggested. No acute fracture or destructive lytic bony lesion is seen. The gallbladder has been removed. Impression: CT findings of acute sigmoid and rectosigmoid colonic diverticulitis. Reported By:
[2017-08-07] MEDS ORDERED: LEVAQUIN TAB 500 MG PO SCH (19:00)
== END 2017-08-07 18:32 | disposition home or self-care (01) ==
LOC: ER 15:28
DX: K57.30 Diverticulosis of large intestine without perforation or abscess without bleeding (principal); B96.81 Helicobacter pylori [H. pylori] as the cause of diseases classified elsewhere
CPT/HCPCS: 36415; 74176; 80053; 81001; 82150; 83690; 84703; 85025; 86677; 96372; 99283; J1885; J2550

== ENCOUNTER 2018-02-28 19:34 | Emergency (ER) | payer SELFPAY ==
[2018-02-28 19:46] VITALS: BP 156/83; BMI 35.4
--- NOTE | 2018-02-28 20:15 | DR.GENAD ---
HPI - PCP Primary Care Physician: RIN - HPI Comment HPI Comment: GETTING WORSE. CURRENTLY ON COUGH MED ANS AMOXICILLIN. COUGH PRODUCTIVE WITH YELLOW SPUTUM. - Complaint/Symptoms Chief Complaint Doctors Comments: COUGH, COLD, CONGESTION WITH FEVER TIMES 3 WEEKS. Chief Complaint:: COLD/COUGH FOR ABOUT 3 WEEKS THICK GREEN/YELLOW SPUTUM, SOB WHEN HAVING COUGHING SPELLS, FEVER. Self Treatment fo Chief Complaint: AMOXICILLIN. ROBITUSSIN DM. OTC COLD MEDS - Nurses notes reviewed Nurses Notes Review: Yes - Source History Provided: Patient - Mode of Arrival Mode of Arrival: Ambulatory - Timing Onset of Chief Complaint: 02/07/18 Came on: Suddenly - Duration Duration: Constant Duration: Weeks - Severity Severity: Moderate PMH - PMH Past Medical History: Yes Past Medical History: Migraines, Hypertension Past Surgical History: Yes Surgical History: Cholecystectomy, Ortho Surgery Past Surgical History Comment: LEFT KNEE REPLACEMENT. HYSTERECTOMY - Family History History of Family Medical Conditions: Yes Family Medical History: Diabetes Mellitus, Hypertension - Social History Does patient currently use any type of tobacco product: No Have you used tobacco products in the last 12 months: No Type of Tobacco Use: None Does any household member use tobacco: No Alcohol Use: None Do you use any recreational Drugs:: No Lives With: Spouse Lives Where: Home - infectious screening In the last 2 months have you had wt loss of >10#?: NO Have you had fever, night sweats or hemotysis?: No Have you traveled outside the country in the last 6 months?: No Isolation: Standard ROS - Review of Systems Constitutional: Fever, Weakness, Fatigue. negative: Chills Eyes: No Symptoms Reported. negative: Eye Pain, Discharge ENTM: Ear Pain, Nose Discharge, Nose Congestion, Throat Pain Respiratoy: Productive Cough, Short of Breath, Wheezing Cardiovascular: Chest Pain Gastrointestinal/Abdominal: No Symptoms Reported. negative: Abdominal Pain, Nausea, Vomiting Genitourinary: No Symptoms Reported. negative: Dysuria, Frequency, Hematuria Neurological: Headache, Weakness, Dizziness Musculoskeletal: Muscle Pain Integumentary: No Symptoms Reported Hematologic/Lymphatic: No Symptoms Reported Endocrine: No Symptoms Reported All Other Systems: Reviewed and Negative PE - Vital Signs Vitals: Temperature 99.4 F Pulse Rate 84 Respiratory Rate 20 Blood Pressure 156/83 O2 Sat by Pulse Oximetry 96 - General Limitations: No Limitations General Appearance: In No Apparent Distress - Head Head Exam: Normal Inspection - Eyes Eye exam: Normal Appearance - ENT ENT Exam: Normal External Ear Exam External Ear Exam: Normal External Inspection TM/Canal Exam: Bilateral Normal Nose Exam: Normal Nose Exam Mouth Exam: Normal Inspection Throat Exam: Normal Inspection - Neck Neck Exam: Normal Inspection - Chest Chest Inspection: Symmetric Chest Wall Rise - Respiratory Respiratory Exam: Normal Lung Sounds Bilat Respiratory Exam: Bilateral Wheezing, Bilateral Rhonchi, Lower Wheezing, Lower Rhonchi - Cardiovascular Cardiovascular Exam: Regular Rate, Normal Rhythm, Normal Heart Sounds - Abdominal Exam Abdominal Exam: Normal Bowel Sounds, Soft. negative: Tenderness - Extremities Extremities Exam: Normal Inspection - Back Back Exam: Normal Inspection - Neurologic Neurological Exam: Alert, Oriented X3 - Psychiatric Psychiatric Exam: Normal Affect, Normal Mood - Skin Skin Exam: Normal Color MDM - Differential Diagnosis Differential Diagnosis: BRONCHITIS, PNEUMONIA, CHEST PAIN, SINUSITIS Course - Treatment Treatment: SEE ORDERS. - Education/Counseling Education/Counseling: Patient, Education Educated On: Diagnosis, Needs for Follow Up ROR - Labs Reviewed Laboratory Results Reviewed?: Yes Result Diagrams: 02/28/18 20:40 02/28/18 20:40 Laboratory: WBC 10.3 X10^3/uL (3.6-10.0) H 02/28/18 20:40 RBC 4.97 X10^6/uL (3.5-5.4) 02/28/18 20:40 Hgb 15.6 g/dL (12.0-16.0) 02/28/18 20:40 Hct 45.1 % (36.0-47.0) 02/28/18 20:40 MCV 90.7 fL (80.0-100.0) 02/28/18 20:40 MCH 31.5 pg (27.0-34.0) 02/28/18 20:40 MCHC 34.7 g/dL (33.0-35.0) 02/28/18 20:40 RDW 13.4 % (11.6-16.5) 02/28/18 20:40 Plt Count 318 X10^3/uL (150.0-450.0) 02/28/18 20:40 MPV 7.6 fL (7.4-11.0) 02/28/18 20:40 Neut % (Auto) 70.0 % (42.0-75.0) 02/28/18 20:40 Lymph % (Auto) 22.2 % (21.0-51.0) 02/28/18 20:40 [place] % (Auto) 5.8 % (0.0-13.0) 02/28/18 20:40 Eos % (Auto) 1.0 % (0.9-2.9) 02/28/18 20:40 Baso % (Auto) 1.0 % (0.2-1.0) 02/28/18 20:40 Neut # (Auto) 7.2 x10^3/uL (2.2-4.8) H 02/28/18 20:40 Lymph # (Auto) 2.3 X10^3/uL (1.3-2.9) 02/28/18 20:40 [place] # (Auto) 0.6 x10^3/uL (0.3-0.8) 02/28/18 20:40 Eos # (Auto) 0.1 x10^3/uL (0.0-0.2) 02/28/18 20:40 Baso # (Auto) 0.1 X10^3/uL (0.0-0.1) 02/28/18 20:40 Absolute Nucleated RBC 0.0 /100WBC 02/28/18 20:40 Sodium 138 mmol/L (136-145) 02/28/18 20:40 Corrected Sodium TNP 02/28/18 20:40 Potassium 4.1 mmol/L (3.5-5.1) 02/28/18 20:40 Chloride 102 mmol/L (98-107) 02/28/18 20:40 Carbon Dioxide 27.3 mmol/L (21-32) 02/28/18 20:40 BUN 16 mg/dL (7-18) 02/28/18 20:40 Creatinine 0.76 mg/dL (0.55-1.02) 02/28/18 20:40 Est GFR (MDRD) Af Amer > 60 (>60) 02/28/18 20:40 Est GFR (MDRD) Non-Af > 60 (>60) 02/28/18 20:40 Glucose 94 mg/dL (65-99) 02/28/18 20:40 Calcium 8.7 mg/dL (8.5-10.1) 02/28/18 20:40 Corrected Calcium TNP 02/28/18 20:40 Total Bilirubin 0.20 mg/dL (0.2-1.0) 02/28/18 20:40 AST 9 Units/L (15-37) L 02/28/18 20:40 ALT 24 Units/L (12-78) 02/28/18 20:40 Alkaline Phosphatase 128 Units/L (46-116) H 02/28/18 20:40 Total Protein 8.0 g/dL (6.4-8.2) 02/28/18 20:40 Albumin 3.7 g/dL (3.4-5.0) 02/28/18 20:40 Globulin 4.3 g/dL (2.5-4.5) 02/28/18 20:40 Albumin/Globulin Ratio 0.9 Ratio (1.1-2.1) L 02/28/18 20:40 - XRAY XRAY Interpreted by: Radiologist - Diagnosis Discharge Problem: Bronchitis - Discharge Plan Disposition: 01 HOME, SELF-CARE Condition: Stable Prescriptions: Cefdinir [Omnicef Cap 300 mg] 300 mg PO BID #20 cap Hydrocodone Polist/Chlorphenir [Tussionex Pennkinetic Susp] 5 ml PO Q12H PRN # 60 ml PRN Reason: Cough - Follow ups/Referrals Follow ups/Referrals: BHARGAV GAR [Primary Care Provider] - 2 days - Instructions Instructions: Acute Bronchitis, Adult, [id number] Additional Instructions: RETURN TO ED IF WORSE.
[2018-02-28 20:48] LABS: BASOPHILS # (AUTO) 0.1 X10^3/uL (0.0-0.1); EOSINOPHILS # (AUTO) 0.1 x10^3/uL (0.0-0.2); HEMATOCRIT 45.1 % (36.0-47.0); HEMOGLOBIN 15.6 g/dL (12.0-16.0); LYMPHOCYTES # (AUTO) 2.3 X10^3/uL (1.3-2.9); LYMPHOCYTES % (AUTO) 22.2 % (21.0-51.0); MEAN CORPUSCULAR HEMOGLOBIN 31.5 pg (27.0-34.0); MEAN CORPUSCULAR HGB CONC 34.7 g/dL (33.0-35.0); MEAN CORPUSCULAR VOLUME 90.7 fL (80.0-100.0); MEAN PLATELET VOLUME 7.6 fL (7.4-11.0); MONOCYTES # (AUTO) 0.6 x10^3/uL (0.3-0.8); MONOCYTES % (AUTO) 5.8 % (0.0-13.0); NEUTROPHILS # (AUTO) 7.2 x10^3/uL (2.2-4.8); PLATELET COUNT 318 X10^3/uL (150.0-450.0); RED BLOOD COUNT 4.97 X10^6/uL (3.5-5.4); RED CELL DISTRIBUTION WIDTH 13.4 % (11.6-16.5); WHITE BLOOD COUNT 10.3 X10^3/uL (3.6-10.0)
[2018-02-28 21:00] LABS: ALANINE AMINOTRANSFERASE 24 Units/L (12-78); ALBUMIN 3.7 g/dL (3.4-5.0); ALKALINE PHOSPHATASE 128 Units/L (46-116); ASPARTATE AMINO TRANSFERASE 9 Units/L (15-37); BLOOD UREA NITROGEN 16 mg/dL (7-18); CALCIUM 8.7 mg/dL (8.5-10.1); CARBON DIOXIDE 27.3 mmol/L (21-32); CHLORIDE 102 mmol/L (98-107); CREATININE 0.76 mg/dL (0.55-1.02); SODIUM 138 mmol/L (136-145); eGFR BLACK RACES > 60 (>60); eGFR NON BLACK RACES > 60 (>60)
[2018-02-28] MEDS ORDERED: TUSSIONEX PENNKINETIC SUSP PO ONE (21:55)
[2018-02-28] MEDS ORDERED: ROCEPHIN VIAL 1 GM IM ONE (21:55)
[2018-02-28] MEDS ORDERED: ROCEPHIN VIAL 1 GM ONE (21:58)
[2018-02-28] MEDS ORDERED: TUSSIONEX PENNKINETIC SUSP ONE (21:58)
--- NOTE | 2018-02-28 22:37 | RAD ---
PA and lateral chest. Indication: Cough Findings: The lungs are clear the heart size is normal. Trachea is midline. No pleural effusion or pn eumothorax. No acute osseous abnormality. Impression: No acute cardiopulmonary abnormality. Reported By:
== END 2018-02-28 22:27 | disposition home or self-care (01) ==
LOC: ER 19:48
DX: J40 Bronchitis, not specified as acute or chronic (principal)
CPT/HCPCS: 36415; 71046; 80053; 85025; 96372; 99282; 99283; J0696

== ENCOUNTER 2022-05-20 09:08 | Observation (INO) ==
[2022-05-20] MEDS ORDERED: ZOFRAN INJ 4 MG VIAL IVP PRN (13:34)
[2022-05-20 13:37] VITALS: BMI 35.4
[2022-05-20] MEDS: XOPENEX 1.25 MG/3 ML NEBULE NEB SCH ×3 (13:55→21:15)
[2022-05-20] MEDS: NS 1,000 ML IV 1,000 ML IV SCH (13:59)
[2022-05-20] MEDS ORDERED: LEVAQUIN PREMIX IV 500 MG 500 MG/100 ML BAG IV SCH (14:00)
[2022-05-20 14:55] LABS: BASOPHILS % (AUTO) 0.2 % (0.2-1.0); EOSINOPHILS % (AUTO) 0.3 % (0.9-2.9); HEMATOCRIT 46.7 % (36.0-47.0); HEMOGLOBIN 16.1 g/dL (12.0-16.0); LYMPHOCYTES # (AUTO) 1.3 X10^3/uL (1.3-2.9); LYMPHOCYTES % (AUTO) 13.9 % (21.0-51.0); MEAN CORPUSCULAR HEMOGLOBIN 33.2 pg (27.0-34.0); MEAN CORPUSCULAR HGB CONC 34.4 g/dL (33.0-35.0); MEAN CORPUSCULAR VOLUME 96.4 fL (80.0-100.0); MEAN PLATELET VOLUME 8.1 fL (7.4-11.0); MONOCYTES # (AUTO) 0.4 x10^3/uL (0.3-0.8); MONOCYTES % (AUTO) 4.5 % (0.0-13.0); NEUTROPHILS # (AUTO) 7.4 x10^3/uL (2.2-4.8); NEUTROPHILS % (AUTO) 81.1 % (42.0-75.0); RED BLOOD COUNT 4.84 X10^6/uL (3.5-5.4); RED CELL DISTRIBUTION WIDTH 13.6 % (11.6-16.5); WHITE BLOOD COUNT 9.1 X10^3/uL (3.6-10.0)
[2022-05-20 15:01] LABS: ALANINE AMINOTRANSFERASE 61 Units/L (12-78); ALBUMIN 3.3 g/dL (3.4-5.0); ALKALINE PHOSPHATASE 115 Units/L (46-116); ASPARTATE AMINO TRANSFERASE 57 Units/L (15-37); BLOOD UREA NITROGEN 11 mg/dL (7-18); CALCIUM 9.1 mg/dL (8.5-10.1); CARBON DIOXIDE 31.2 mmol/L (21-32); CHLORIDE 96 mmol/L (98-107); COR CA(FOR HYPOALB) 9.7 mg/dL (8.5-10.1); COR NA(FOR HYPERGLY) 138 mmol/L (136-145); CREATININE 0.94 mg/dL (0.55-1.02); LIPASE 66 Units/L (73-393); SODIUM 137 mmol/L (136-145); TOTAL PROTEIN 7.5 g/dL (6.4-8.2); eGFR NON BLACK RACES > 60 (>60)
--- NOTE | 2022-05-20 15:29 | RAD ---
HISTORYCOVID+. SOB, COPD EXACSTUDYCHEST, 1 VIEWCOMPARISONNoneFINDINGSFocal opacity in the lower left lung could be atelectasis or pneumonia.The upper left lung in the right lung are clear. No pleural effusion or pneumothorax.Heart size is normal.Bones are unremarkable. []IMPRESSION1. Possible left basilar pneumoniaElectronically signed by: Hernan Collins (May 20, 2022 15:27:52)
[2022-05-20] MEDS ORDERED: ROBITUSSIN DM PO PRN (16:31)
[2022-05-20] MEDS: ULTRAM PO PRN (21:45)
[2022-05-21] MEDS: NS 1,000 ML IV 1,000 ML IV SCH (04:20)
[2022-05-21] MEDS ORDERED: POTASSIUM CHLORIDE LIQ 20 MEQ UDC PO PRN (05:10)
[2022-05-21] MEDS ORDERED: MICRO K EXTEN CAP 10 MEQ PO PRN (05:10)
[2022-05-21] MEDS ORDERED: K-RIDER 10 MEQ/NS 100 ML 10 MEQ/100 ML BAG IV PRN (05:10)
[2022-05-21] MEDS ORDERED: POTASSIUM CHL 60 MEQ/NS 0.45% 500 ML IV PRN (05:10)
[2022-05-21] MEDS ORDERED: K-DUR TAB 20 MEQ PO PRN (05:10)
[2022-05-21] MEDS ORDERED: POTASSIUM CHL 40 MEQ/NS 0.45% 500 ML IV PRN (05:10)
[2022-05-21] MEDS ORDERED: KLOR-CON PO PRN (05:10)
[2022-05-21 05:48] LABS: BASOPHILS % (AUTO) 0.4 % (0.2-1.0); EOSINOPHILS % (AUTO) 0.6 % (0.9-2.9); HEMATOCRIT 44.8 % (36.0-47.0); HEMOGLOBIN 15.4 g/dL (12.0-16.0); LYMPHOCYTES # (AUTO) 1.5 X10^3/uL (1.3-2.9); MEAN CORPUSCULAR HEMOGLOBIN 32.9 pg (27.0-34.0); MEAN CORPUSCULAR HGB CONC 34.3 g/dL (33.0-35.0); MEAN CORPUSCULAR VOLUME 95.8 fL (80.0-100.0); MEAN PLATELET VOLUME 8.2 fL (7.4-11.0); MONOCYTES # (AUTO) 0.5 x10^3/uL (0.3-0.8); MONOCYTES % (AUTO) 6.4 % (0.0-13.0); NEUTROPHILS # (AUTO) 5.8 x10^3/uL (2.2-4.8); NEUTROPHILS % (AUTO) 73.6 % (42.0-75.0); RED BLOOD COUNT 4.67 X10^6/uL (3.5-5.4); RED CELL DISTRIBUTION WIDTH 13.8 % (11.6-16.5); WHITE BLOOD COUNT 7.8 X10^3/uL (3.6-10.0)
[2022-05-21 05:58] LABS: ALANINE AMINOTRANSFERASE 61 Units/L (12-78); ALBUMIN 3.1 g/dL (3.4-5.0); ALKALINE PHOSPHATASE 107 Units/L (46-116); ASPARTATE AMINO TRANSFERASE 49 Units/L (15-37); BLOOD UREA NITROGEN 9 mg/dL (7-18); CARBON DIOXIDE 34.9 mmol/L (21-32); CHLORIDE 99 mmol/L (98-107); COR CA(FOR HYPOALB) 9.7 mg/dL (8.5-10.1); CREATININE 0.77 mg/dL (0.55-1.02); SODIUM 139 mmol/L (136-145); TOTAL PROTEIN 7.2 g/dL (6.4-8.2); eGFR NON BLACK RACES > 60 (>60)
[2022-05-21] MEDS: XOPENEX 1.25 MG/3 ML NEBULE NEB SCH (08:20)
[2022-05-21 08:26] VITALS: BP 180/115
[2022-05-21] MEDS: ULTRAM PO PRN (08:37)
== END 2022-05-21 10:50 | disposition home or self-care (01) ==
LOC: MED/SURG
PROVIDERS: ADMIT Internal Medicine; ATTEND Internal Medicine
DX: Z86.16 Personal history of COVID-19; R50.9 Fever, unspecified; R11.2 Nausea with vomiting, unspecified; R79.82 Elevated C-reactive protein (CRP); R19.7 Diarrhea, unspecified; J44.1 Chronic obstructive pulmonary disease with (acute) exacerbation; I10 Essential (primary) hypertension